=== PATIENT | female | born 1995 | race Caucasian/White ===

== ENCOUNTER 2017-04-18 21:10 | Emergency (ER) | payer MEDICAID ==
[2017-04-18] MEDS ORDERED: LEVOPHED KIT (*) 1 IVSOL 0 KIT IV ONE (21:24)
[2017-04-18] MEDS ORDERED: LEVOPHED KIT (*) 1 IVSOL 1 KIT in D5W(*) 250 ML BAG 250 ML IVPB ONE (21:45)
--- NOTE | 2017-04-18 21:46 | ER Report ---
History and Physical Time Seen By MD: 21:07 HPI/GOMEZ CHIEF COMPLAINT: cardiac arrest HISTORY OF PRESENT ILLNESS: This is a 21 year old female. Brought to the ER with CPR in progress. EMS obtained a history of vomiting all day, then unresponsive. Patient initially with bradycardia with faint pulse; EMS gave atropine. The pulse was lost and the patient had tachycardia, so CPR was started. Patient received a dose of Narcan and two doses of epinephrine in the field. EMS intubated, but intubated the esophagus on the first try. Copious amounts of dark fluid from the esophagus. Second attempt successful. Patient in PEA or Asystole during their course of CPR. They obtained history of the patient being a heavy drinker, on a recent binge, vomiting all day. The [place] [employer] talked to the roommate who stated she has a history of heavy drinking from age 14. Stopped during recent and breast feeding, but has started heavily again. Has been drinking a gallon of vodka a day, not getting out of bed. Last drink yesterday. Started urinating and defecating in bed today. Thought a history of post depression. REVIEW OF SYSTEMS: Unable to obtain. Reviewed Nurses Notes: Yes Constitutional Vital Sign - Last 24 Hours 04/18/17 04/18/17 04/18/17 04/18/17 21:10 21:12 21:15 21:16 Pulse ??? 114 B/P (MAP) 145/121 (129) 88/70 (76) Pulse Ox 43 04/18/17 04/18/17 04/18/17 04/18/17 21:20 21:20 21:24 21:25 Pulse 101 121 B/P (MAP) 75/60 (65) 122/36 (64) Pulse Ox 42 44 FiO2 100.0 04/18/17 04/18/17 04/18/17 04/18/17 21:26 21:30 21:32 21:35 Pulse 129 135 B/P (MAP) ???/??? (1665) 94/60 (71) Pulse Ox 61 95 04/18/17 04/18/17 04/18/17 04/18/17 21:36 21:38 21:40 21:42 Pulse 133 B/P (MAP) 52/46 (48) 116/98 (104) 79/21 (40) 68/49 (55) Pulse Ox 98 04/18/17 04/18/17 04/18/17 04/18/17 21:44 21:45 21:48 21:50 Pulse 131 129 B/P (MAP) 99/80 (86) 64/48 (53) Pulse Ox 97 97 04/18/17 04/18/17 04/18/17 04/18/17 21:52 21:55 21:56 22:00 Pulse 128 B/P (MAP) 79/54 (62) 69/58 (62) 80/65 (70) Pulse Ox 98 04/18/17 04/18/17 04/18/17 04/18/17 22:04 22:05 22:08 22:10 Pulse 121 119 B/P (MAP) 59/43 (48) 58/26 (37) Pulse Ox 99 04/18/17 04/18/17 04/18/17 22:15 22:16 22:20 Pulse 117 108 B/P (MAP) 86/47 (60) 76/55 (62) Pulse Ox 97 96 Physical Exam General Appearance: The patient is altered with CPR in progress. Eyes: Pupils are fixed and dilated. No scleral icterus or injection. No spontaneous movements. ENT: ETT tube in place. Blood in oropharynx. Neck: Trachea is midline. No wound in neck. Respiratory: No spontaneous respiration. Bag valve mask respirations with moderate stiffness and pressure. Seems like less chest rise on the left side, possible right main stem intubation. Cardiovascular: Tachycardia with narrow complex. No pulses at femoral or carotid on pause of CPR. Huy device providing CPR Gastrointestinal: Abdomen is soft. Distended. Genitourinary: Normal perineum and genitalia. Neurological: No spontaneous movements of anything, face or extremities. no response to pain. Skin: Large bruising on right flank, right shoulder, and left upper back. Musculoskeletal: No deformity. No step-off on back exam when rolled to remove from board. DIFFERENTIAL DIAGNOSIS: After history and physical exam, differential diagnosis was considered for altered mental status with cardiopulmonary arrest, uncertain cause. Cannot rule out trauma versus medical at this time. CPR continued. Medical Decision Making Data Points Result Diagram: 04/18/17213204/18/172132 Laboratory Hematology Test 04/18/17 00:00 04/18/17 21:13 04/18/17 21:15 04/18/17 21:33 Human Chorionic Gonadotropin, Qual Negative (NEGATIVE) Blood Gas Puncture Site Right radial Blood Gas Patient Temperature 99.8 DEGREES Arterial Blood pH 7.37 (7.35-7.45) Arterial Blood Partial Pressure CO2 > 90 mmHg (32-37) Arterial Blood Partial Pressure O2 38 mmHg (60-80) Arterial Blood HCO3 61 mmol/L (20-26) Arterial Blood Oxygen Saturation 61 % (92-100) Arterial Blood Base Excess > 30.0 mmol/L Sloan Test Acceptable Oxygen Liters/Minute 100 Prothrombin Time 15.8 seconds (12.0-14.4) Prothromb Time International Ratio 1.24 Activated Partial Thromboplast Time 40 seconds (23-35) Salicylates Level < 10 mg/L Salicylate Last Dose Date unk Acetaminophen Level < 10 ug/ml Serum Alcohol 14 mg/dl Red Blood Count 4.82 M/uL (4.17-5.56) Mean Corpuscular Volume 91.8 fL (80.0-96.0) Mean Corpuscular Hemoglobin 30.5 pg (26.0-33.0) Mean Corpuscular Hemoglobin Concent 33.3 g/dL (32.0-36.0) Red Cell Distribution Width 12.1 % (11.5-14.5) Mean Platelet Volume 10.8 fL (7.2-11.1) Neutrophils (%) (Auto) 77.4 % (39.4-72.5) Lymphocytes (%) (Auto) 9.3 % (17.6-49.6) Monocytes (%) (Auto) 12.8 % (4.1-12.4) Eosinophils (%) (Auto) 0.2 % (0.4-6.7) Basophils (%) (Auto) 0.3 % (0.3-1.4) Nucleated RBC Relative Count (auto) 0.7 /100WBC Neutrophils # (Auto) 5.7 K/uL (2.0-7.4) Lymphocytes # (Auto) 0.7 K/uL (1.3-3.6) Monocytes # (Auto) 0.9 K/uL (0.3-1.0) Eosinophils # (Auto) 0.0 K/uL (0.0-0.5) Basophils # (Auto) 0.0 K/uL (0.0-0.1) Nucleated RBC Absolute Count (auto) 0.05 K/uL Peripheral Blood Smear Yes Y/N Sodium Level 126 mmol/L (137-145) Potassium Level 3.2 mmol/L (3.5-5.0) Chloride Level 78 mmol/L (98-107) Carbon Dioxide Level 10 mmol/L (22-31) Blood Urea Nitrogen 16 mg/dl (7-18) Creatinine 1.90 mg/dl (0.52-1.04) Glomerular Filtration Rate Calc 33.1 Random Glucose 34 mg/dl (75-110) Lactate 21.3 mmol/L (0.7-2.1) Calcium Level 8.2 mg/dl (8.4-10.2) Total Bilirubin 2.7 mg/dl (0.2-1.3) Aspartate Amino Transf (AST/SGOT) 927 U/L (0-35) Alanine Aminotransferase (ALT/SGPT) 240 U/L (0-56) Alkaline Phosphatase 106 U/L (0-126) Total Protein 5.4 gm/dl (6.3-8.2) Albumin 2.8 g/dl (3.5-5.0) Chemistry Test 04/18/17 00:00 04/18/17 21:13 04/18/17 21:15 04/18/17 21:33 Human Chorionic Gonadotropin, Qual Negative (NEGATIVE) Blood Gas Puncture Site Right radial Blood Gas Patient Temperature 99.8 DEGREES Arterial Blood pH 7.37 (7.35-7.45) Arterial Blood Partial Pressure CO2 > 90 mmHg (32-37) Arterial Blood Partial Pressure O2 38 mmHg (60-80) Arterial Blood HCO3 61 mmol/L (20-26) Arterial Blood Oxygen Saturation 61 % (92-100) Arterial Blood Base Excess > 30.0 mmol/L Sloan Test Acceptable Oxygen Liters/Minute 100 Prothrombin Time 15.8 seconds (12.0-14.4) Prothromb Time International Ratio 1.24 Activated Partial Thromboplast Time 40 seconds (23-35) Salicylates Level < 10 mg/L Salicylate Last Dose Date unk Acetaminophen Level < 10 ug/ml Serum Alcohol 14 mg/dl White Blood Count 7.4 k/uL (4.5-11.0) Red Blood Count 4.82 M/uL (4.17-5.56) Hemoglobin 14.7 g/dL (12.0-16.0) Hematocrit 44.3 % (34.0-47.0) Mean Corpuscular Volume 91.8 fL (80.0-96.0) Mean Corpuscular Hemoglobin 30.5 pg (26.0-33.0) Mean Corpuscular Hemoglobin Concent 33.3 g/dL (32.0-36.0) Red Cell Distribution Width 12.1 % (11.5-14.5) Platelet Count 44 K/uL (150-450) Mean Platelet Volume 10.8 fL (7.2-11.1) Neutrophils (%) (Auto) 77.4 % (39.4-72.5) Lymphocytes (%) (Auto) 9.3 % (17.6-49.6) Monocytes (%) (Auto) 12.8 % (4.1-12.4) Eosinophils (%) (Auto) 0.2 % (0.4-6.7) Basophils (%) (Auto) 0.3 % (0.3-1.4) Nucleated RBC Relative Count (auto) 0.7 /100WBC Neutrophils # (Auto) 5.7 K/uL (2.0-7.4) Lymphocytes # (Auto) 0.7 K/uL (1.3-3.6) Monocytes # (Auto) 0.9 K/uL (0.3-1.0) Eosinophils # (Auto) 0.0 K/uL (0.0-0.5) Basophils # (Auto) 0.0 K/uL (0.0-0.1) Nucleated RBC Absolute Count (auto) 0.05 K/uL Peripheral Blood Smear Yes Y/N Glomerular Filtration Rate Calc 33.1 Lactate 21.3 mmol/L (0.7-2.1) Calcium Level 8.2 mg/dl (8.4-10.2) Total Bilirubin 2.7 mg/dl (0.2-1.3) Aspartate Amino Transf (AST/SGOT) 927 U/L (0-35) Alanine Aminotransferase (ALT/SGPT) 240 U/L (0-56) Alkaline Phosphatase 106 U/L (0-126) Total Protein 5.4 gm/dl (6.3-8.2) Albumin 2.8 g/dl (3.5-5.0) Coagulation Test 04/18/17 21:15 Prothrombin Time 15.8 seconds Prothromb Time International Ratio 1.24 Activated Partial Thromboplast Time 40 seconds Toxicology Test 04/18/17 21:15 Salicylates Level < 10 mg/L Salicylate Last Dose Date unk Acetaminophen Level < 10 ug/ml Serum Alcohol 14 mg/dl EKG/Imaging EKG Interpretation 12 lead EKG: Rhythm: Atrial fibrillation with rapid ventricular response, rate 163 [place]: Rightward axis QRS: normal ST segments: Nonspecific T-wave abnormality 12 lead EKG: Rhythm: Sinus tachycardia, rate 130 [place]: Rightward axis QRS: normal ST segments: Nonspecific Imaging PELVIS INDICATION: CODE BLUE COMPARISON: None available FINDINGS: No evidence of fracture, dislocation, or acute osseous abnormality of the bones of the pelvis. Nonspecific gas-filled bowel. IMPRESSION: 1. No acute osseous abnormality of the pelvis Report Dictated By: Dean Eng MD at 04/18/2017 9:51 PM CHEST SINGLE AP Indication: CODE BLUE. Altered.. Comparison: None available Findings: Endotracheal tube is malpositioned, extending into the right mainstem bronchus. Recommend pulling back approximately 3-4 cm. Mediastinal structures are shifted to the left. There is a linear gas-filled structure, slightly to the left of midline, likely representing shifted right lung to the left of midline. No definitive focal consolidation or definitive atelectasis of the left lung. Subtle retrocardiac opacities which are favored vascular in etiology. No visualized pneumothorax or pleural effusion. No gross osseous abnormality. IMPRESSION: 1. Malpositioning of the endotracheal tube extending into the right mainstem bronchus. Recommend pulling back approximately 3-4 cm. 2. Shifting of the mediastinal structures to the left, likely related to left lung atelectasis secondary to the right mainstem intubation., not definitively appreciated on radiograph. Results were discussed with EUNICE GARCIA at 04/18/2017 9:51 PM. Report Dictated By: Dean Eng MD at 04/18/2017 9:45 PM EXAMINATION: HEAD W/O CONTRAST CLINICAL INDICATION: COMPARISON: No priors TECHNIQUE: Contiguous axial CT images of the brain were obtained without IV contrast. Sagittal and coronal reformatted images were also performed. One of the following dose optimization techniques was utilized in the performance of this exam: Automated exposure control; adjustment of the mA and/ or kV according to the patient's size; or use of an iterative reconstruction technique. Specific details can be referenced in the facility's radiology CT exam operational policy. RESULT: BRAIN: The ventricles are symmetric and normal in size. The brain parenchyma appears normal. The rivero-white matter differentiation is preserved and the basilar cisterns are maintained. The cerebellum and brainstem appear normal. There is no mass, acute infarct, hemorrhage or shift of midline. VISUALIZED PARANASAL SINUSES & MASTOIDS: Well aerated. SKULL BASE & CRANIUM: Visualized osseous structures are intact. IMPRESSION: No acute findings. Report Dictated By: Dean Eng MD at 04/18/2017 10:38 PM EXAMINATION: CT cervical spine without IV contrast HISTORY: CODE BLUE. Altered. COMPARISON: None. TECHNIQUE: Axial images were obtained from the skull base through the upper thoracic spine without IV contrast administration. Coronal and sagittal reformatted images were obtained from the axial source data. One of the following dose optimization techniques was utilized in the performance of this exam: Automated exposure control; adjustment of the mA and/ or kV according to the patient's size; or use of an iterative reconstruction technique. Specific details can be referenced in the facility's radiology CT exam operational policy. FINDINGS: Alignment: Straightening of the normal cervical alignment which is typically related to positioning and/or spasm. Cranio-cervical junction: Negative. Vertebral bodies: Negative. Posterior elements: Negative. Hardware: None. Disc Spaces: Negative. Soft tissues: Note is made of an endotracheal tube. Otherwise negative. Visualized upper chest: Negative. IMPRESSION: 1. No acute fracture of the cervical spine. 2. Straightening of the normal cervical lordosis which is typically related to positioning and/or spasm. Report Dictated By: Dean Eng MD at 04/18/2017 10:47 PM CTA CHEST ABD PEL W WO CONT HISTORY: CODE BLUE. TECHNIQUE: CTA chest, abdomen and pelvis with IV contrast. 3D coronal slab MIPs and 2D reconstructions in the coronal and sagittal planes were also created. One of the following dose optimization techniques was utilized in the performance of this exam: Automated exposure control; adjustment of the mA and/ or kV according to the patient's size; or use of an iterative reconstruction technique. Specific details can be referenced in the facility's radiology CT exam operational policy. CONTRAST: 125 mL [id number]. COMPARISON: None. FINDINGS: Chest: Vessels: Negative. There is no evidence for traumatic aortic injury. Heart: Negative. Mediastinum: Fluid within a patulous esophagus raising the possibility of dysmotility and/or reflux. Lymph nodes: Negative. Lungs/pleura: Endotracheal tube terminates approximate 7 mm from the dequan. Recommend pulling back approximately 2.5 cm. There is mild heterogeneous linear opacities within the left lung base, likely related to atelectasis. There is mild dependent atelectasis within the upper lobes. There is a small pneumothorax with a small focus of gas medially adjacent to the right lower lobe. Nonspecific linear hypoattenuation adjacent to the left major fissure. Bones/soft tissues: Subtle nondisplaced fractures of the anterior right second , third, and fourth ribs. Subtle nondisplaced fractures of the anterior left second, third, fourth, and likely the fifth ribs. No definitive additional fractures are identified. There is irregularity within the superior aspect of the sternum on the sagittal view (image 68 of series 8), which likely represents motion artifact however cannot completely exclude fracture. Nonspecific soft tissue nodule within the inferior medial right breast measuring 1.6 x 1.0 cm (image 57 of series 5). Abdomen and Pelvis: Vessels: Negative. No evidence for acute aortic injury. Hepatobiliary: Hepatomegaly measuring 18.2 cm at the midclavicular line with advanced hepatic steatosis. There is subtle gas within the left hepatic lobe which may be biliary or venous in origin. Gallbladder is distended and hyperdense, possibly related to internal sludge or gallstones. No visualized biliary ductal dilatation. Spleen: Negative. Adrenals: Negative. Pancreas: Negative. Kidneys/: Corral catheter within a decompressed bladder. Otherwise negative. GI: There are gas-filled loops of small and large bowel. Borderline prominent loops of small bowel measuring up to 2.7 cm in diameter. No visualized pneumatosis. Spaces/nodes: No visualized free air or free fluid. No lymphadenopathy. Bones/soft tissues: Negative. IMPRESSION: 1. Multiple contiguous bilateral anterior nondisplaced rib fractures, likely related to chest compressions. 2. Tiny pneumothorax located along the medial aspect of the right lower lobe, possibly related to the rib fractures. 3. Endotracheal tube is still low lying, proximal to 7 mm from the dequan. Recommend pulling back proximal and 2.5 cm. 4. Small foci of gas within the left hepatic lobe which are nonspecific however favored related to IV injections. There is no additional findings to suggest pneumobilia or portal gas. 5. Prominence of the gallbladder with probable internal sludge. No pericholecystic fluid or definitive wall thickening to suggest acute cholecystitis. 6. Gas-filled loops of small and large bowel suggestive of ileus. 7. Additional incidental/chronic findings, as above. Results were discussed with EUNICE GARCIA at 04/18/2017 11:04PM. Report Dictated By: Dean Eng MD at 04/18/2017 10:49 PM ED Course/Re-evaluation Clinical Indication for ER IV: Hydration, Hypotention, IV Access (2 IO accesses on arrival. 2 peripheral IVs here in the ER.) ED Course CPR continued in the ER. About 15minutes in the field. Several more rounds of PEA here in the ER with several doses of epinephrine given, another dose of narcan with no effect, and an amp of bicarb. The first liter of NS from EMS was run in and a second and third were started. Levophed was started for hypotension and titrated to MAP of 65. Regained a faint pulse and CPR discontinued. Still no spontaneous respirations and pupils still fixed and dilated. No spontaneous movements. Chest x-ray showed right mainstem intubation , backed out 3cm. Still at the dequan, but improved aeration of the left lung with improvement of shift of midline. Better pressures on respiration as well. Backed out another 2 cm. Better aeration and pressures. Discussed the case with Dr. Santacruz at [facility] who accepted the patient for transfer to the ICU. Not all labs are back at this time. Brief discussion of some of the labs results and the rest were sent with the patient on transfer. Discussed radiology Dr. Eng. See imaging reports above. Helicopter crew here and getting ready to take patient to [facility]. I did call and talk to the patient's boyfriend and the patient's mother to let then know the situation and critical status of the patient. Contact information for patient's mother: Marco Kim Contact information for patient's boyfriend: Tan Diaz Decision to Disposition Date: Apr 18, 2017 Decision to Disposition Time: 22:58 Critical Care Time I spent a total of 100 minutes of critical care time in obtaining history, performing a physical exam, bedside monitoring of interventions, collecting and interpreting tests and discussion with consultants but not including time spent performing procedures. Depart Departure Latest Vital Signs Vital Signs Date Time Temp Pulse Resp B/P (MAP) Pulse Ox O2 Delivery O2 Flow Rate FiO2 04/18/17 22:20 108 76/55 (62) 96 04/18/17 21:20 100.0 Impression: Primary Impression: Cardiopulmonary arrest Condition: Critical [facility] Apr 18, 2017 21:46
[2017-04-18] MEDS ORDERED: NS 0.9% 150 ML BAG 150 ML ONE (21:51)
[2017-04-18] MEDS ORDERED: IOPAMIDOL 76% 75 ML INFUS BTL 0 ML ONE (21:51)
[2017-04-18] MEDS ORDERED: IOPAMIDOL 76% 150 ML INFUS BTL 150 ML ONE (21:54)
--- NOTE | 2017-04-18 21:54 | RADIOLOGY IMAGING REPORT ---
[place] [facility] [place] NAME: Yovani Valencia : 1995 MR: [id number] V: [id number] EXAM DATE: ORDERING PHYSICIAN: EUNICE GARCIA TECHNOLOGIST: Location: [facility] Patient: Yovani Valencia : 1995 Visit/Account:[id number] Date of Sevice: 04/18/2017 CHEST SINGLE AP Indication: CODE BLUE. Altered.. Comparison: None available Findings: Endotracheal tube is malpositioned, extending into the right mainstem bronchus. Recommend pulling sia k approximately 3-4 cm. Mediastinal structures are shifted to the left. There is a linear gas-filled structure, slightly to t he left of midline, likely representing shifted right lung to the left of midline. No definitive focal consolidation or definitive atelectasis of the left lung. Subtle retrocardiac opa cities which are favored vascular in etiology. No visualized pneumothorax or pleural effusion. No gross osseous abnormality. IMPRESSION: 1. Malpositioning of the endotracheal tube extending into the right mainstem bronchus. Recommend pull ing back approximately 3-4 cm. 2. Shifting of the mediastinal structures to the left, likely related to left lung atelectasis second mariana to the right mainstem intubation., not definitively appreciated on radiograph. Results were discussed with EUNICE GARCIA at 04/18/2017 9:51 PM. Report Dictated By: Dean Eng MD at 04/18/2017 9:45 PM Report E-Signed By: Dean Eng MD at 04/18/2017 9:51 PM WSN:[id number]
[2017-04-18] MEDS ORDERED: DEXTROSE 50% 50 ML SYR ONE (21:55)
--- NOTE | 2017-04-18 21:56 | RADIOLOGY IMAGING REPORT ---
FACILITY: [facility] PATIENT NAME: Yovani Valencia : 1995 MR: [id number] V: [id number] EXAM DATE: ORDERING PHYSICIAN: EUNICE GARCIA TECHNOLOGIST: Location[place] [facility] [place] Patient: Yovani Valencia : 1995 Visit/Account:[id number] Date of Sevice: 04/18/2017 PELVIS INDICATION: CODE BLUE COMPARISON: None available FINDINGS: No evidence of fracture, dislocation, or acute osseous abnormality of the bones of the pelvis. Nonspecific gas-filled bowel. IMPRESSION: 1. No acute osseous abnormality of the pelvis Report Dictated By: Daen Eng MD at 04/18/2017 9:51 PM Report E-Signed By: Dean Eng MD at 04/18/2017 9:52 PM WSN:[id number]
--- NOTE | 2017-04-18 21:57 | RADIOLOGY IMAGING REPORT ---
FACILITY: [facility] PATIENT NAME: Yovani Valencia : 1995 MR: [id number] V: [id number] EXAM DATE: ORDERING PHYSICIAN: EUNICE GARCIA TECHNOLOGIST: Location: [facility] Patient: Yovani Valencia : 1995 Visit/Account:[id number] Date of Sevice: 04/18/2017 CHEST SINGLE AP Indication: CODE BLUE. Recheck endotracheal tube position.. Comparison: Chest radiograph from 9:14 PM. Findings: Endotracheal tube has been pulled back however still remains within the right mainstem bronchus. Jimenez mmend pulling back approximately 3-4 cm. Improved right to left shifting of the mediastinal structures, likely related to improved aeration of the left lung. Heart size within normal limits. There is no focal infiltrate or lobar consolidation. Low lung volumes. No pneumothorax or pleural effusion. IMPRESSION: 1. Endotracheal has been pulled back however still remains in the right mainstem bronchus. Recommend pulling back approximately 3-4 cm. Ordering physician was aware of the findings when called about the previous x-ray. 2. Improved mediastinal shifting which is likely related to improved atelectasis. Report Dictated By: Dean Eng MD at 04/18/2017 9:52 PM Report E-Signed By: Dean Eng MD at 04/18/2017 9:54 PM WSN:[id number]
[2017-04-18 22:10] LABS: PLATELET COUNT, AUTOMATED 44 K/uL (150-450)
[2017-04-18 22:20] VITALS: BP 76/55
[2017-04-18 22:40] LABS: INR 1.24
--- NOTE | 2017-04-18 22:43 | RADIOLOGY IMAGING REPORT ---
FACILITY: [facility] PATIENT NAME: Yovani Valencia : 1995 MR: [id number] V: [id number] EXAM DATE: ORDERING PHYSICIAN: EUNICE GARCIA TECHNOLOGIST: Location: [facility] [place] Patient: Yovani Valencia : 1995 Visit/Account:[id number] Date of Sevice: 04/18/2017 EXAMINATION: HEAD W/O CONTRAST CLINICAL INDICATION: COMPARISON: No priors TECHNIQUE: Contiguous axial CT images of the brain were obtained without IV contrast. Sagittal and co alyson reformatted images were also performed. One of the following dose optimization techniques was utilized in the performance of this exam: Autom ated exposure control; adjustment of the mA and/or kV according to the patient's size; or use of an i terative reconstruction technique. Specific details can be referenced in the facility's radiology C T exam operational policy. RESULT: BRAIN: The ventricles are symmetric and normal in size. The brain parenchyma appears normal. The gra y-white matter differentiation is preserved and the basilar cisterns are maintained. The cerebellum a nd brainstem appear normal. There is no mass, acute infarct, hemorrhage or shift of midline. VISUALIZED PARANASAL SINUSES & MASTOIDS: Well aerated. SKULL BASE & CRANIUM: Visualized osseous structures are intact. IMPRESSION: No acute findings. Report Dictated By: Dean Eng MD at 04/18/2017 10:38 PM Report E-Signed By: Dean Eng MD at 04/18/2017 10:39 PM WSN:[id number]
--- NOTE | 2017-04-18 22:53 | RADIOLOGY IMAGING REPORT ---
[place] [facility] [place] NAME: Yovani Valencia : 1995 MR: [id number] V: [id number] EXAM DATE: ORDERING PHYSICIAN: EUNICE GARCIA TECHNOLOGIST: Location: [facility] - [place] Patient: Yovani Valencia : 1995 Visit/Account:[id number] Date of Sevice: 04/18/2017 EXAMINATION: CT cervical spine without IV contrast HISTORY: CODE BLUE. Altered. COMPARISON: None. TECHNIQUE: Axial images were obtained from the skull base through the upper thoracic spine without I V contrast administration. Coronal and sagittal reformatted images were obtained from the axial [facility] e data. One of the following dose optimization techniques was utilized in the performance of this exam: Autom ated exposure control; adjustment of the mA and/or kV according to the patient's size; or use of an i terative reconstruction technique. Specific details can be referenced in the facility's radiology C T exam operational policy. FINDINGS: Alignment: Straightening of the normal cervical alignment which is typically related to positioning a nd/or spasm. Cranio-cervical junction: Negative. Vertebral bodies: Negative. Posterior elements: Negative. Hardware: None. Disc Spaces: Negative. Soft tissues: Note is made of an endotracheal tube. Otherwise negative. Visualized upper chest: Negative. IMPRESSION: 1. No acute fracture of the cervical spine. 2. Straightening of the normal cervical lordosis which is typically related to positioning and/or spa sm. Report Dictated By: Dean Eng MD at 04/18/2017 10:47 PM Report E-Signed By: Dean Eng MD at 04/18/2017 10:49 PM WSN:[id number]
--- NOTE | 2017-04-18 23:12 | RADIOLOGY IMAGING REPORT ---
FACILITY: [facility] - [place] PATIENT NAME: Yovani Valencia : 1995 MR: [id number] V: [id number] EXAM DATE: ORDERING PHYSICIAN: EUNICE GARCIA TECHNOLOGIST: Location: [facility] - [place] Patient: Yovani Valencia : 1995 Visit/Account:[id number] Date of Sevice: 04/18/2017 CTA CHEST ABD PEL W WO CONT HISTORY: CODE BLUE. TECHNIQUE: CTA chest, abdomen and pelvis with IV contrast. 3D coronal slab MIPs and 2D reconstructi ons in the coronal and sagittal planes were also created. One of the following dose optimization techniques was utilized in the performance of this exam: Autom ated exposure control; adjustment of the mA and/or kV according to the patient's size; or use of an i terative reconstruction technique. Specific details can be referenced in the facility's radiology CT exam operational policy. CONTRAST: 125 mL Isovue-370. COMPARISON: None. FINDINGS: Chest: Vessels: Negative. There is no evidence for traumatic aortic injury. Heart: Negative. Mediastinum: Fluid within a patulous esophagus raising the possibility of dysmotility and/or reflux. Lymph nodes: Negative. Lungs/pleura: Endotracheal tube terminates approximate 7 mm from the dequan. Recommend pulling back approximately 2.5 cm. There is mild heterogeneous linear opacities within the left lung base, likely related to atelectasis. There is mild dependent atelectasis within the upper lobes. There is a small pneumothorax with a small focus of gas medially adjacent to the right lower lobe. Nonspecific linear hypoattenuation adjacent to the left major fissure. Bones/soft tissues: Subtle nondisplaced fractures of the anterior right second, third, and fourth ri bs. Subtle nondisplaced fractures of the anterior left second, third, fourth, and likely the fifth ri bs. No definitive additional fractures are identified. There is irregularity within the superior aspe ct of the sternum on the sagittal view (image 68 of series 8), which likely represents motion artifac t however cannot completely exclude fracture. Nonspecific soft tissue nodule within the inferior medial right breast measuring 1.6 x 1.0 cm (image 57 of series 5). Abdomen and Pelvis: Vessels: Negative. No evidence for acute aortic injury. Hepatobiliary: Hepatomegaly measuring 18.2 cm at the midclavicular line with advanced hepatic steatos is. There is subtle gas within the left hepatic lobe which may be biliary or venous in origin. Gallbl adder is distended and hyperdense, possibly related to internal sludge or gallstones. No visualized b iliary ductal dilatation. Spleen: Negative. Adrenals: Negative. Pancreas: Negative. Kidneys/: Corral catheter within a decompressed bladder. Otherwise negative. GI: There are gas-filled loops of small and large bowel. Borderline prominent loops of small bowel m easuring up to 2.7 cm in diameter. No visualized pneumatosis. Spaces/nodes: No visualized free air or free fluid. No lymphadenopathy. Bones/soft tissues: Negative. IMPRESSION: 1. Multiple contiguous bilateral anterior nondisplaced rib fractures, likely related to chest yvrose sions. 2. Tiny pneumothorax located along the medial aspect of the right lower lobe, possibly related to the rib fractures. 3. Endotracheal tube is still low lying, proximal to 7 mm from the dequan. Recommend pulling back pro ximal and 2.5 cm. 4. Small foci of gas within the left hepatic lobe which are nonspecific however favored related to IV injections. There is no additional findings to suggest pneumobilia or portal gas. 5. Prominence of the gallbladder with probable internal sludge. No pericholecystic fluid or definitiv e wall thickening to suggest acute cholecystitis. 6. Gas-filled loops of small and large bowel suggestive of ileus. 7. Additional incidental/chronic findings, as above. Results were discussed with EUNICE GARCIA at 04/18/2017 11:04PM. Report Dictated By: Dean Eng MD at 04/18/2017 10:49 PM Report E-Signed By: Dean Eng MD a 04/18/2017 11:07 PM WSN:[id number]
[2017-04-18] MEDS ORDERED: NS 0.9% ONE (23:38)
[2017-04-19] MEDS ORDERED: NS(*) 0.9% 250 ML BAG 250 ML ONE (02:22)
[2017-04-19] MEDS ORDERED: NS(*) 0.9% 1000 ML BAG 1,000 ML IV ONE ×3 (02:25)
--- NOTE | 2017-04-19 02:59 | EKG ---
FACILITY: [facility] PATIENT NAME: RADHA TORRES : [id number] MR: [id number] V: [id number] EXAM DATE: ORDERING PHYSICIAN: EUNICE GARCIA TECHNOLOGIST: MADHURI Test Reason : CODE BLUE Blood Pressure : / mmHG Vent. Rate : 163 BPM Atrial Rate : 144 BPM P-R Int : 000 ms QRS Dur : 072 ms QT Int : 286 ms P-R-T Axes : 000 107 031 degrees QTc Int : 470 ms Atrial fibrillation with rapid ventricular response Rightward axis Nonspecific ST abnormality , probably digitalis effect Abnormal ECG Confirmed by RANDI PEREZ ([id number]) on 04/19/2017 5:35:58 AM Referred By: Confirmed By:RANDI PEREZ
--- NOTE | 2017-04-19 03:00 | EKG ---
FACILITY: [facility] PATIENT NAME: RADHA TORRES : [id number] MR: [id number] V: [id number] EXAM DATE: ORDERING PHYSICIAN: EUNICE GARCIA TECHNOLOGIST: MADHURI Test Reason : CODE BLUE Blood Pressure : / mmHG Vent. Rate : 130 BPM Atrial Rate : 130 BPM P-R Int : 144 ms QRS Dur : 070 ms QT Int : 328 ms P-R-T Axes : 000 104 038 degrees QTc Int : 482 ms Sinus tachycardia Rightward axis Borderline ECG Confirmed by RANDI PEREZ ([id number] on 04/19/2017 5:36:14 AM Referred By: Confirmed By:RANDI PEREZ
[2017-04-19] MEDS ORDERED: [UNRECOGNIZED DRUG - OTHER] ONE (03:12)
[2017-04-19] MEDS ORDERED: NOREPINEPH BITAR 4 MG/4 ML AMP ONE (03:16)
== END 2017-04-18 23:45 | disposition short-term general hospital (02) ==
LOC: MERGE 21:34 → ER 21:34
DX: I46.9 Cardiac arrest, cause unspecified (principal); R41.82 Altered mental status, unspecified
CPT/HCPCS: 36600; 70450; 71045; 71275; 72125; 72170; 74174; 82803; 83605; 84703; 85025; 85610; 85730; 93005; 94002; 99285; 99291; 99292; G0480; J0171; J2310; J7030; J7050; J7060; Q9967; 80320; 80329; 82040; 82247; 82310; 82374; 82435; 82565; 82947; 84075; 84132; 84155; 84295; 84450; 84460; 84520; C1758

== ENCOUNTER → 2017-04-18 | Outpatient (CLI) | payer MEDICAID ==
[2016-11-10 08:41] VITALS: BMI 36.5
[~2017-04-18] MED LIST: ACET-1718 PO; IBUP800T37 PO; PREN-75 PO
== END ==
LOC: AMB 20:31
PROVIDERS: ATTEND Nurse Practitioner
DX: I46.9 Cardiac arrest, cause unspecified (principal)
CPT/HCPCS: A0425; A0433

== ENCOUNTER → 2017-04-18 | Outpatient (REF) ==
[2016-11-10 08:41] VITALS: BMI 36.5
== END ==
LOC: AMB 22:44
PROVIDERS: ATTEND Nurse Practitioner
DX: Z02.9 Encounter for administrative examinations, unspecified (principal)